=== PATIENT | female | born 1965 | race Caucasian/White ===

== ENCOUNTER → 2017-09-02 | Outpatient (CLI) | payer MEDICARE ==
[~2017-09-02] MED LIST: REGADENOSON 0.4 MG/5 ML DISP.SYRIN. IV ONE
--- NOTE | 2017-09-02 09:43 | PCVCIMAG ---
APPROVED REPORT Study performed: 09/02/2017 08:13:43 EXAM: Comprehensive 2D, Doppler, and color-flow Echocardiogram Patient Location: Echo lab Status: routine BSA: 1.50 BP: 90/60 mmHg Rhythm: NSR Other Information Study Quality: Adequate Indications Diabetes Hypertension/HDD Hyperlipidemia, Chest Pain, 2D Dimensions LVEF(%): 12.29 (>50%) IVSd: 7.29 (7-11mm)LVOT Diam: 20.66 (18-24mm) LVDd: 32.42 mm PWd: 7.95 (7-11mm)Ascending Ao: 31.57 (22-36mm) LVDs: 30.72 (25-40mm) Left Atrium: 23.42 (27-40mm) Aortic Root: 34.05 mm LV Single Plane 4CH: 46.19 % LV Single Plane 2CH: 52.86 %Graf's LVEF: 49.53 % Biplane EF: 51.4 % Volumes Left Atrial Volume (Systole) Single Plane 4CH: 13.84 mLSingle Plane 2CH: 12.86 mL LA ESV Index: 10.00 mL/m2 Aortic Valve LVOT Max P.14 mmHg LVOT Max V: 0.73 m/s Mitral Valve E/A Ratio: 0.7 MV Decel. Time: 214.83 ms MV E Max Pawel.: 0.52 m/s MV A Pawel.: 0.71 m/s IVRT: 128.03 ms TDI E/Lateral E': 6.50E/Medial E': 7.43 Medial E' Pawel.: 0.07 m/s Lateral E' Pawel.: 0.08 m/s Pulmonary Valve PV Peak Gr.: 2.37 mmHg Pulmonary Vein P Vein S: 0.49 m/sP Vein A: 0.34 m/s P Vein D: 0.39 m/sP Vein A Dur.: 55.4 msec P Vein S/D Ratio: 1.26 Left Ventricle The left ventricle is normal size. There is normal LV segmental wall motion. There is normal left ventricular wall thickness. Left ventricular systolic function is normal. The left ventricular ejection fraction is within the normal range. LVEF is >55%. Grade I - abnormal relaxation pattern. Right Ventricle The right ventricle is normal size. The right ventricular systolic function is normal. Atria The left atrium size is normal. The right atrium size is normal. Aortic Valve The aortic valve is normal in structure, trileaflet. No aortic regurgitation is present. There is no aortic valvular stenosis. Mitral Valve The mitral valve is normal in structure. There is no mitral valve regurgitation noted. No evidence of mitral valve stenosis. Tricuspid Valve The tricuspid valve is normal in structure. There is no tricuspid valve regurgitation noted. Pulmonic Valve The pulmonary valve is normal in structure. There is no pulmonic valvular regurgitation. Great Vessels The aortic root is normal in size. IVC is normal in size and collapses with >50% inspiration Pericardium There is no pericardial effusion. <Conclusion> Left ventricular systolic function is normal. There is normal LV segmental wall motion. LVEF is >55%. Grade I diastolic dysfunction The aortic valve is normal in structure, trileaflet. No aortic valvular stenosis or insufficiency. The mitral valve is normal in structure. No mitral valve regurgitation noted. Pulmonary artery pressure could not be reliably ascertained There is no pericardial effusion.
--- NOTE | 2017-09-02 17:36 | PCVCIMAG ---
APPROVED REPORT Exam: Nuclear Stress Test Indication: Chest pain Patient Location: Out-Patient Stress Nurse: Shey Holbrook RN, Julia Edwards RN SD Tech:ANGELA GambinoMT Ht: 5 ft 5 in Wt: 106 lbs BSA: 1.51 m2 HR: 90 bpm BP: 126/74 mmHg BMI: 17.6 Rhythm: SR Medical History Medical History: Hyperlipidemia, Diabetic Insulin, Current Smoker Medications: Albuterol, Novolog, Phenergan, Zantac Allergies: Ativan, Erythromycin Pretest Chest Pain Characteristics: No chest pain Exercise History: Sedentary NM EXAM: Myocardial Perfusion REST/STRESS Imaging Protocol: Rest Tc-99m/Stress Tc-99m 1 day Resting Data Rest SPECT myocardial perfusion imaging was performed in supine position 45 minutes following the intravenous injection of 8.1 mCi of Tc-99m Sestamibi. Time of rest injection: 0900 Date: 09/02/2017 Administration Route: IV Administration Site: Left Wrist Pharmacologic Stress Pharmacologic stress test was performed by injecting Regadenoson 0.4 mg IV push followed by the intravenous injection of 26.3 mCi of Tc-99m Sestamibi. Time of stress injection: 1030 Date: 09/02/2017 Administration Route: IV Administration Site: Left Wrist Study Quality Study: Good Study Data Post stress, the left ventricular ejection was 73%.. SSS: 0 SRS: 5 SDS: 0 Perfusion No evidence of stress induced ischemia or prior myocardial infarction. Wall Motion Normal left ventricular size and function with no regional wall motion abnormalities. Nuclear Conclusion No evidence of stress induced ischemia or prior myocardial infarction. Normal left ventricular size and function with no regional wall motion abnormalities. Post stress, the left ventricular ejection was 73%.. No prior study available for comparison. Interpreted by: Dwain Cohen MD Electronically Approved: 09/02/2017 15:29:06 Stress Test Details Stress Test: Pharmacologic stress testing performed using 0.4 mg of regadenoson per 5 mL given IV over 10 seconds. Reason for pharmacologic stress test: physical limitation, foot drop. HR Resting HR: 90 bpmMax Heart Rate (APMHR): 167 bpm Max HR Achieved: 103 bpmTarget HR (85% APMHR): 141 bpm % of APMHR: 61 Recovery HR: 101 bpm BP Resting BP: 126/74 mmHg Max BP: 104/65 mmHg ECG Resting ECG: Sinus Rhythm Stress ECG: Sinus Tachycardia ST Change: None Maximum ST Deviation: 0 mm Arrhythmia: None Recovery ECG: Sinus Tachycardia Recovery ST Change: None Recovery ST Deviation: 0 mm Clinical Reason for Termination: Completed protocol Stress Symptoms: Dyspnea, Chest tightness Exercise duration: 0 min 55 sec Exercise capacity: 1.0 METs Symptoms resolved during recovery. Stress ECG Conclusion Clinical: Non-ischemic ECG: Non-ischemic <Conclusion> Clinical: Non-ischemic ECG: Non-ischemic
== END | disposition home or self-care (01) ==
LOC: PCVCIMAG 08:01
PROVIDERS: ATTEND Internal Medicine
DX: I10 Essential (primary) hypertension (principal); R07.9 Chest pain, unspecified; E11.9 Type 2 diabetes mellitus without complications; E78.5 Hyperlipidemia, unspecified; R00.0 Tachycardia, unspecified; F17.200 Nicotine dependence, unspecified, uncomplicated; Z82.49 Family history of ischemic heart disease and other diseases of the circulatory system
CPT/HCPCS: 78452; 93017; 93306; A9500; J2785